=== PATIENT | female | born 1940 | race Caucasian/White ===

== ENCOUNTER 2021-02-15 06:21 | Emergency (ER) | payer BC, MEDICAID, MEDICARE ==
--- NOTE | 2021-02-15 07:15 | EDM.PDOC ---
ED HPI GENERAL MEDICAL PROBLEM - General Chief Complaint: Laceration Stated Complaint: MEDICAL VIA [facility] Time Seen by Provider: 02/15/21 07:05 Source of Information: Reports: EMS, RN. Denies: Patient, Old Records (no old records) History Limitations: Reports: Other (dementia, no report from the [facility]) - History of Present Illness INITIAL COMMENTS - FREE TEXT/NARRATIVE: 80 yo female from a [facility] in [facility] is sent to our ER this AM via EMS after she apparently fell and incurred a laceration around her R eyebrow. She is not on any blood thinners. There was no report of LOC or vomiting or other injuries. Onset: Today, Sudden Onset Date: 02/15/21 Duration: Minutes: Location: Reports: Face Quality: Reports: Burning Severity: Mild Improves with: Reports: None Worsens with: Reports: None Context: Reports: Trauma Associated Symptoms: Reports: No Other Symptoms Treatments [employer]: Reports: See EMS Report, Other (see below) (none) Right Upper Face/Facial Pain Score (Numeric/FACES): 3 - Related Data Allergies Allergy/AdvReac Type Severity Reaction Status Date / Time amoxicillin Allergy Cannot Verified 02/15/21 06:37 Remember cephalexin Allergy Cannot Verified 02/15/21 06:37 Remember ciprofloxacin Allergy Cannot Verified 02/15/21 06:37 Remember iodine Allergy Cannot Verified 02/15/21 06:37 Remember latex Allergy Cannot Verified 02/15/21 06:37 Remember Penicillins Allergy Cannot Verified 02/15/21 06:37 Remember Home Meds: Home Meds Acetaminophen [Tylenol] 650 mg PO Q4H PRN 02/15/21 [History] Bisacodyl [Gentle Laxative] 1 supp RECTAL BID 02/15/21 [History] DULoxetine [Cymbalta] 40 mg PO DAILY 02/15/21 [History] Divalproex Sodium [Depakote Sprinkle] 125 mg PO BIDMEALS 02/15/21 [History] Furosemide [Lasix] 10 mg PO DAILY 02/15/21 [History] Gabapentin [Neurontin] 100 mg PO BID 02/15/21 [History] Gabapentin [Neurontin] 200 mg PO DAILY PRN 02/15/21 [History] Latanoprost/Pf [Latanoprost 0.005% Eye Drop] 7.5 ml OP BEDTIME 02/15/21 [Hist ory] Mirtazapine [Remeron] 15 mg PO BEDTIME 02/15/21 [History] OLANZapine [ZyPREXA] 2.5 mg PO DAILY 02/15/21 [History] OLANZapine [ZyPREXA] 5 mg PO BEDTIME 02/15/21 [History] traZODone 50 mg PO BEDTIME 02/15/21 [History] ED ROS GENERAL - Review of Systems Review Of Systems: See Below Constitutional: Reports: No Symptoms GI/Abdominal: Reports: No Symptoms Musculoskeletal: Reports: No Symptoms Skin: Reports: Wound (laceration above the R eye(brow)) Neurological: Reports: Confusion (baseline) ED EXAM, SKIN/RASH Exam: See Below Exam Limited By: No Limitations General Appearance: Alert, WD/WN, No Apparent Distress Eye Exam: Bilateral Eye: Normal Inspection, PERRL Ears: Normal External Exam, Normal Canal, Hearing Grossly Normal Nose: Normal Inspection, No Blood Throat/Mouth: Normal Inspection, Normal Lips, Normal Voice, No Airway Compromise Head: Atraumatic, Normocephalic Neck: Normal Inspection, Supple, Non-Tender Respiratory/Chest: No Respiratory Distress Cardiovascular: Regular Rate, Rhythm Extremities: Normal Inspection Neurological: Alert, CN II-XII Intact, No Motor/Sensory Deficits Psychiatric: Normal Affect, Normal Mood Skin: Warm, Dry, Normal Color, No Rash, Wound/Incision (2 cm mostly linear lac just above the R eyebrow, gaping). No: Intact Location, Skin: Face Characteristics: Linear Associated features: No: Lymphangitis ED SKIN PROCEDURES - Laceration/Wound Repair Right Forehead Appearance: Subcutaneous, Linear, Clean Anesthetic Type: Local Local Anesthesia - Lidocaine (Xylocaine): 1% with EPI Local Anesthetic Volume: 3cc Skin Prep: Saline Exploration/Debridement/Repair: Wound Explored Closed with: Sutures Lac/Wound length In cm: 2 Suture Size: 5-0 Suture Type: Nylon, Interrupted, Mattress Drain Placement: No Tetanus Status Addressed: Yes Complications: No Course - Vital Signs Last Recorded V/S: Last Vital Signs Temp 37.0 C 02/15/21 06:37 Pulse 68 02/15/21 06:37 Resp 18 02/15/21 06:37 BP 147/87 H 02/15/21 06:37 Pulse Ox 99 02/15/21 06:37 - Orders/Labs/Meds Orders: Active Orders 24 hr Category Date Time Status Bacitracin [Bacitracin Oint 1 GM] Med 02/15/21 07:42 Once 1 dose TOP ONETIME ONE Departure - Departure Time of Disposition: 07:50 Disposition: Home, Self-Care 01 Condition: Good Clinical Impression: Forehead laceration Qualifiers: Encounter type: initial encounter Qualified Code(s): S01.81XA - Laceration without foreign body of other part of head, initial encounter - Discharge Information *PRESCRIPTION DRUG MONITORING PROGRAM REVIEWED*: Not Applicable *COPY OF PRESCRIPTION DRUG MONITORING REPORT IN PATIENT MILO: Not Applicable Instructions: Laceration Care, Adult, [id number] Referrals: PCP,None [Primary Care Provider] - Forms: ED Department Discharge Additional Instructions: Clean wound twice daily with 1/2 water and 1/2 peroxide. Dry. Apply Bacitracin ointment and a new dressing. Stitches out in 8-9 days. Recheck sooner for signs of infection. Sepsis Event Note (ED) - Evaluation Sepsis Screening Result: No Definite Risk - Focused Exam Vital Signs: Vital Signs Temp Pulse Resp BP Pulse Ox 02/15/21 06:37 37.0 C 68 18 147/87 H 99 - My Orders Last 24 Hours: My Active Orders 02/15/21 07:42 Bacitracin [Bacitracin Oint 1 GM] 1 dose TOP ONETIME ONE - Assessment/Plan Last 24 Hours: My Active Orders 02/15/21 07:42 Bacitracin [Bacitracin Oint 1 GM] 1 dose TOP ONETIME ONE
[2021-02-15] MEDS ORDERED: Bacitracin Oint 1 GM U/D Packet TOP ONE (07:42)
== END 2021-02-15 10:14 | disposition home or self-care (01) ==
LOC: JP.ED 06:21
DX: S01.81XA Laceration without foreign body of other part of head, initial encounter (principal); Z88.0 Allergy status to penicillin; Z88.1 Allergy status to other antibiotic agents; Z88.8 Allergy status to other drugs, medicaments and biological substances; Z91.040 Latex allergy status; Z79.899 Other long term (current) drug therapy; W18.30XA Fall on same level, unspecified, initial encounter; Y92.009 Unspecified place in unspecified non-institutional (private) residence as the place of occurrence of the external cause
CPT/HCPCS: 12011; 99283-25